=== PATIENT | male | born 1930 | race Caucasian/White ===

== ENCOUNTER 2017-09-02 19:58 | Outpatient (CLI) | END 2017-09-02 19:59 | disposition home or self-care (01) | LOC: AMBL 19:58 | PROVIDERS: ATTEND Family Medicine | DX: M25.552 Pain in left hip (principal); W19.XXXA Unspecified fall, initial encounter ==

== ENCOUNTER 2017-09-09 21:41 | Emergency (ER) ==
[2017-09-09 21:57] VITALS: BP 00/00
[2017-09-09 22:01] VITALS: TEMP 95.8; BMI 19.8
--- NOTE | 2017-09-09 22:01 | ED.PDOC ---
General ED Provider: Dr. DERECK ABEL Chief Complaint: Cardiac Arrest Stated Complaint: EMT brought patient from the [facility]. patient unresponsive, he was Intubated and code in progress. Time Seen by Physician: 21:59 Primary Care Provider: SHALINI FERNANDEZ Nursing and Triage Documentation Reviewed and Agree: Yes Reviewed sepsis parameters & appropriate labs ordered?: No System Inflammatory Response Syndrome: Not Applicable Sepsis Protocol: For patient's 13 years and over: Temp is 96.8 and below OR 101 and greater Pulse >90 BPM Resp >20/minute Acutely Altered Mental Status Are patient's symptoms suggestive of a new infection, such as: -Pneumonia -Skin, Soft Tissue -Endocarditis -UTI -Bone, Joint Infection -Implantable Device -Acute Abdominal Infection -Wound Infection -Meningitis -Blood Stream Catheter Infection -Unknown Cardiac Resuscitation - Cardiac Resuscitation/Physical Exam Onset/Duration: Minutes Witnessed Arrest: Yes Down-time Before ALS Initiated: 5 min Breathing Prehospital Findings: Reports: Apnea Circulation/Rhythm Prehospital Findings: Reports: Asystole Disability/Neurological Prehospital Findings: Reports: Unresponsive Breathing Prehospital Intervention: Reports: Intubation Circulation/Rhythm Prehospital Intervention: Reports: Chest compressions Airway Prehospital Response: Intubated Breathing Prehospital Response: Present: ETT in airway Circulation/Rhythm Prehospital Response: Present: Asystole Total Down Time EQUIPMENT ASSOCIATE: 30 min Breathing ED Findings: Present: Apnea Circulation/Rhythm ED Findings: Present: Asystole Disability/Neurological ED Findings: Present: Unresponsive Breathing ED Intervention: Intubated by Other (enroute) Circulation/Rhythm ED Intervention: Chest compressions Circulation/Rhythm ED Response: Present: Asystole Right Pupil: Fixed, Dilated Left Pupil: Fixed, Dilated Review Of Systems: Unable due to extremis EMS/Code Sheet Reviewed: Yes Resuscitation Successful: No Terminated At: 21;42 Preliminary Cause of : Cardiac arrest Differential Diagnoses: Other (cardiac arrest) Past Medical History - Past Medical History Previously Healthy: Yes Endocrine: Reports: None Cardiovascular: Reports: CAD, Hypertension, CHF, A-Fib, Angina Respiratory: Reports: COPD Hematological: Reports: None Gastrointestinal: Reports: None Genitourinary: Reports: None Neuro/Psych: Reports: CVA, Dementia Musculoskeletal: Reports: None Cancer: Reports: None - Surgical History General Surgical History: Reports: None - Family History Family History: Reports: None Critical Care Note - Critical Care Note Total Time (mins): 30 Course - Course Vital Signs: Temp Pulse Resp BP Pulse Ox 09/09/17 21:57 0 L 0 L 00/00 L 09/09/17 21:42 95.8 F L 0 L 0 L 0/0 L 0 L Departure - Departure Time of Disposition: 22:08 Disposition: Discharge Problem: Cardiac arrest Instructions: Chronic Respiratory Failure (DC) Condition: Pt referred to PMD for follow-up: No IPMP verified?: No Disposition Discussed With: Family
== END 2017-09-09 23:37 | disposition expired ==
LOC: ED 21:41
DX: I46.9 Cardiac arrest, cause unspecified (principal)
CPT/HCPCS: 31500; 96374; 99291